=== PATIENT | male | born 1985 | race Two or more races ===

== ENCOUNTER 2017-09-23 18:58 | Emergency (ER) | payer OTHER ==
[~2017-09-23] VITALS: Ht 175.3 cm; Wt 142.9 kg
[~2017-09-23 18:58] MED LIST: ARIP2TAB3 PO; LORA-259 PO; SERT25TA PO
[2017-09-23] MEDS ORDERED: DIAZ5TAB PO (19:05)
[2017-09-23] MEDS ORDERED: BUPR100T4 PO (19:05)
--- NOTE | 2017-09-23 19:35 | NUR ---
Dr. Cotton at bedside for MSE.
--- NOTE | 2017-09-23 19:50 | NUR ---
Xray at bedside.
[2017-09-23 20:09] LABS: BASOPHILS # (AUTO) 0.1 K/uL (0.0-8.0); BASOPHILS % (AUTO) 0.3 % (0.0-2.0); EOSINOPHILS # (AUTO) 0.4 K/uL (0.0-0.7); EOSINOPHILS % (AUTO) 2.2 % (0.0-7.0); HEMATOCRIT 48.5 % (36.7-47.1); HEMOGLOBIN 16.9 g/dL (12.5-16.3); LYMPHOCYTES # (AUTO) 1.9 K/uL (20.0-40.0); LYMPHOCYTES % (AUTO) 9.4 % (20.5-51.5); MEAN CORPUSCULAR HEMOGLOBIN 29.6 uug (23.8-33.4); MEAN CORPUSCULAR HGB CONC 35 g/dL (32.5-36.3); MONOCYTES # (AUTO) 1.2 K/uL (2.0-10.0); MONOCYTES % (AUTO) 5.9 % (0.0-11.0); NEUTROPHILS # (AUTO) 16.7 K/uL (1.8-8.9); NEUTROPHILS % (AUTO) 82.2 % (38.5-71.5); PLATELET COUNT (AUTO) 231 K/uL (152-348); RED BLOOD CELL COUNT(AUTO) 5.71 MIL/uL (4.06-5.63); WHITE BLOOD COUNT (AUTO) 20.3 K/uL (3.6-10.2)
--- NOTE | 2017-09-23 20:10 | NUR ---
Pt provided urine sample, sent to lab
[2017-09-23 20:13] LABS: POTASSIUM 3.6 mmol/L (3.5-5.1)
[2017-09-23 20:18] LABS: BILIRUBIN,DIRECT 0.1 mg/dL (0.0-0.2); BILIRUBIN,TOTAL 1.1 mg/dL (0.2-1.0); TOTAL PROTEIN, SERUM 7.7 g/dL (6.4-8.2)
[2017-09-23 20:19] LABS: *BLOOD, URINE 1+ (NEGATIVE); *CLARITY,URINE CLEAR (CLEAR); *COLOR,URINE YELLOW (YELLOW); *KETONES,URINE NEGATIVE (NEGATIVE); *UROBILINOGEN,URINE 0.2 E.U./dl (NORMAL); LEUKOCYTE ESTERASE ,URINE NEGATIVE (NEGATIVE); NITRITE, URINE NEGATIVE (NEGATIVE); UGLUCOSE NEGATIVE (NEGATIVE)
--- NOTE | 2017-09-23 20:27 | NUR ---
Ultrasound at bedside.
[2017-09-23 20:30] LABS: *BILIRUBIN,URIN NEGATIVE (NEGATIVE); *PROTEIN,URINE 3+ (NEGATIVE)
[2017-09-23 20:33] LABS: MUCUS,URINE MODERATE /LPF (0-FEW); WBC,URINE 0-3 /HPF (0-3)
[2017-09-23] MEDS ORDERED: predniSONE 20 MG TABLET PO ONE (21:15)
[2017-09-23] MEDS ORDERED: LEVOFLOXACIN 750 MG TABLET PO ONE (21:15)
[2017-09-23] MEDS ORDERED: LEVOFLOXACIN 750 MG TABLET ONE (21:15)
[2017-09-23] MEDS ORDERED: IBUPROFEN 800 MG TABLET PO ONE (21:15)
[2017-09-23] MEDS ORDERED: predniSONE 20 MG TABLET ONE (21:16)
[2017-09-23] MEDS ORDERED: IBUPROFEN 800 MG TABLET ONE (21:16)
--- NOTE | 2017-09-23 21:30 | NUR ---
Patient discharged to home in stable conditon. Written and verbal after care instructions given. Patient verbalizes understanding of instructions. Pt ambulated out of ER with steady gait, no acute signs of distress, VSS, all belongings taken.
[2017-09-23 21:33] VITALS: BP 118/82
== END 2017-09-23 21:33 | disposition home or self-care (01) ==
LOC: ER 19:00
DX: J18.9 Pneumonia, unspecified organism (principal); J45.909 Unspecified asthma, uncomplicated; Z79.899 Other long term (current) drug therapy
CPT/HCPCS: 36415; 71045; 76870; 80048; 80076; 81001; 83605; 84484; 85025; 85730; 87040 ×2; 87086; 99285; A4663; J7512; 70030-TC

== ENCOUNTER 2018-04-25 17:43 | Emergency (ER) | payer OTHER ==
[~2018-04-25] VITALS: Ht 177.8 cm; Wt 161.0 kg
[~2018-04-25 17:43] MED LIST changes: +BUPR100T4 PO; +DIAZ5TAB PO; -LORA-259 PO; -SERT25TA PO
--- NOTE | 2018-04-25 19:13 | NUR ---
Dr. Munoz at bedside at bedside for update.
--- NOTE | 2018-04-25 19:22 | NUR ---
Patient discharged to home in stable conditon. Written and verbal after care instructions given. Patient verbalizes understanding of instructions.
[2018-04-25 19:24] VITALS: BP 114/74
== END 2018-04-25 19:25 | disposition home or self-care (01) ==
LOC: ER 17:43
DX: N50.812 Left testicular pain (principal); R10.31 Right lower quadrant pain; R10.32 Left lower quadrant pain; J45.909 Unspecified asthma, uncomplicated; Z79.899 Other long term (current) drug therapy
CPT/HCPCS: 76870; A4663

== ENCOUNTER 2022-01-13 11:28 | Emergency (ER) | payer OTHER ==
[~2022-01-13] VITALS: Ht 177.8 cm; Wt 117.9 kg
[2022-01-13] MEDS ORDERED: LIDOCAINE 5% PATCH TD ONE (12:00)
[2022-01-13] MEDS ORDERED: ACETAMINOPHEN 325 MG TABLET PO ONE (12:00)
[2022-01-13] MEDS ORDERED: ACETAMINOPHEN 325 MG TABLET ONE (12:26)
[2022-01-13] MEDS ORDERED: AMOXICILLIN-CLAVUL 875-125MG TABLET ONE (12:26)
[2022-01-13] MEDS ORDERED: TDAP DIPH,PERTUSS,TET VAC/PF 0.5 ML DISP.SYRIN IM ONE (12:26)
[2022-01-13] MEDS ORDERED: ACET-2154 PO (13:00)
== END 2022-01-13 13:25 | disposition home or self-care (01) ==
LOC: ER 11:28
DX: S50.11XA Contusion of right forearm, initial encounter (principal); S93.505A Unspecified sprain of left lesser toe(s), initial encounter; S46.812A Strain of other muscles, fascia and tendons at shoulder and upper arm level, left arm, initial encounter; V00.142A Scooter (nonmotorized) colliding with stationary object, initial encounter; Y93.I9 Activity, other involving external motion; Y92.89 Other specified places as the place of occurrence of the external cause; E66.01 Morbid (severe) obesity due to excess calories; Z68.37 Body mass index [BMI] 37.0-37.9, adult; F31.9 Bipolar disorder, unspecified; K51.90 Ulcerative colitis, unspecified, without complications; J45.909 Unspecified asthma, uncomplicated; Z79.899 Other long term (current) drug therapy
CPT/HCPCS: 73090; 73630; 90715; A4663